=== PATIENT | male | born 2000 | race Two or more races ===

== ENCOUNTER 2020-12-27 16:36 | Emergency (ER) | payer OTHER ==
[~2020-12-27] VITALS: Ht 170.2 cm; Wt 54.5 kg
[2020-12-27 16:58] VITALS: BP 126/76
== END 2020-12-27 18:45 | disposition home or self-care (01) ==
LOC: EMS 16:36
DX: R19.09 Other intra-abdominal and pelvic swelling, mass and lump (principal)
CPT/HCPCS: 74176; 99284; Z7502